=== PATIENT | female | born 1955 ===

== ENCOUNTER 2018-02-13 23:44 | Emergency (ER) | payer SELFPAY ==
[2018-02-14 00:05] VITALS: TEMP 98
--- NOTE | 2018-02-14 01:31 | ED PDOC ---
HPI: Head Injury Time Seen by Provider: 02/14/18 00:16 Chief Complaint (Nursing): Dizziness/Lightheaded History Per: Patient History/Exam Limitations: no limitations Onset/Duration Of Symptoms: Hrs Additional History Per: Patient Additional Complaint(s): No PMHx presenting with head injury, states around 4PM she was lifting a heavy box at work and accidentally hit her forehead against a table edge. States she did not pass out but had dizziness and pain in her head after. No vomiting, no vision changes. Past Medical History Reviewed: Historical Data, Nursing Documentation, Vital Signs Vital Signs: Last Vital Signs Temp 98.0 F 02/13/18 23:55 Pulse 67 02/14/18 00:29 Resp 19 02/14/18 00:29 BP 115/60 02/14/18 00:29 Pulse Ox 100 02/14/18 00:29 - Family History Family History: States: Unknown Family Hx - Allergies Allergies/Adverse Reactions: Allergies Allergy/AdvReac Type Severity Reaction Status Date / Time No Known Allergies Allergy Verified 02/14/18 00:05 Review of Systems ROS Statement: Except As Marked, All Systems Reviewed And Found Negative Neurological: Positive for: Headache. Negative for: Altered Mental Status Physical Exam - Reviewed Nursing Documentation Reviewed: Yes Vital Signs Reviewed: Yes - Physical Exam Appears: Positive for: Well, Non-toxic, No Acute Distress Head Exam: Positive for: NORMAL INSPECTION, NORMOCEPHALIC. 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 Negative for: Motor/Sensory Deficits, Aphasia, Facial Droop - ECG O2 Sat by Pulse Oximetry: 100 Pulse Ox Interpretation: Normal Medical Decision Making Medical Decision MakinAM A/P: No PMHx presenting with head injury and dizzziness -Patient is well appaeirng, normal neuro exam normal vitals -lac/abrasion does not need repair given extremely small size, no bleeding -will get head CT -motrin for pain 230AM EXAM: CT Head Without Intravenous Contrast CLINICAL HISTORY: 62 years old, female; Pain; Headache; Additional info: Head injury, dizziness TECHNIQUE: Axial computed tomography images of the head/brain without intravenous contrast. All CT scans at this facility use at least one of these dose optimization techniques: automated exposure control; mA and/or kV adjustment per patient size (includes targeted exams where dose is matched to clinical indication); or iterative reconstruction. COMPARISON: No relevant prior studies available. FINDINGS: Brain: No hemorrhage. No significant white matter disease. No edema. Vascular calcification. Ventricles: No hydrocephalus. Bones: Skull is intact. Sinuses: Small axial left frontal sinus. No acute sinusitis. Mastoid air cells: No mastoid effusion. IMPRESSION: No CT evidence of acute intracranial abnormality. PAtient feeling better, informed of results. Advised to followup with PMD. Discharged in well appearing condition. Disposition - Clinical Impression Clinical Impression: Dizziness, Head injury - Patient ED Disposition Is Patient to be Admitted: No - Disposition Referrals: [facility] [Outside] Disposition: Routine/Home Disposition Time: 02:38 Condition: GOOD Instructions: Minor Head Injury (DC) Forms: [facility] (Danish) Print Language: MOROCCAN
[2018-02-14 02:42] VITALS: BP 115/71; PULSE 61; RESP 16
[2018-02-14 02:53] VITALS: O2SAT 100
--- NOTE | 2018-02-14 09:28 | CT ---
Date of service: 02/14/2018 PROCEDURE: CT HEAD WITHOUT CONTRAST. HISTORY: head injury, dizziness COMPARISON: None available. TECHNIQUE: Axial computed tomography images were obtained through the head/brain without intravenous contrast. Radiation dose: Total exam DLP = 658.43 mGy-cm. This CT exam was performed using one or more of the following dose reduction techniques: Automated exposure control, adjustment of the mA and/or kV according to patient size, and/or use of iterative reconstruction technique. FINDINGS: HEMORRHAGE: No intracranial hemorrhage. BRAIN: There are mild chronic microangiopathic changes. There is no mass, mass effect or abnormal extra-axial fluid collection. There is no territorial infarction. VENTRICLES: There is mild age-related global parenchymal volume loss and proportionate enlargement of the ventricles and cortical sulci. CALVARIUM: There is no calvarial fracture or extracranial soft tissue swelling. PARANASAL SINUSES: Predominantly clear. There is a small osteoma in the left frontal sinus. MASTOID AIR CELLS: Minimal fluid in the right mastoid tip. No inflammatory changes. OTHER FINDINGS: None. IMPRESSION: No acute intracranial abnormality. Mild age-related global parenchymal volume loss and mild chronic microangiopathic changes. A preliminary report was provided by [facility] services.
== END 2018-02-14 03:05 | disposition home or self-care (01) ==
LOC: H.ER 23:44
DX: S09.90XA Unspecified injury of head, initial encounter (principal); W22.8XXA Striking against or struck by other objects, initial encounter; Y99.0 Civilian activity done for income or pay